=== PATIENT | male | born 1950 | race Caucasian/White ===

== ENCOUNTER 2018-01-23 05:45 | Day surgery (SDC) | payer OTHER ==
[~2018-01-23] VITALS: Ht 175.3 cm; Wt 83.5 kg
--- NOTE | ~2018-01-23 | OR ---
[facility] [address], [place] [address] Draft DATE OF OPERATION: 01/23/2018 SURGEON: Shade Frazier MD PREOPERATIVE DIAGNOSES: 1. Incarcerated epigastric incisional hernia. 2. Incarcerated periumbilical incisional hernia. POSTOPERATIVE DIAGNOSES: 1. Incarcerated epigastric incisional hernias x4. 2. Incarcerated periumbilical hernia x1. PROCEDURES: Epigastric and periumbilical incisional herniorrhaphy with intraabdominal Ventrio mesh (11 x 14 cm). ESTIMATED BLOOD LOSS: None. INDICATIONS: Vaughn is a 67-year-old gentleman, who has been a long-time smoker. He came with an incarcerated symptomatic periumbilical and epigastric incisional hernia. He talked about an open appendectomy many years ago. He said because of scar tissue, he had to have a midline laparotomy with resection of bowel and lysis of adhesions. He said he continues to cut firewood and spit firewood to help heat the house. He said he has been having a lot of pain with his hernias. The epigastric hernia in particular has been bothering him. He ended up at the [facility] Emergency Room. The CT scan showed what appeared to be a 1.3 cm epigastric fascial defect along with a smaller fat containing periumbilical incisional hernia. His primary care provider had asked him to see me as a general surgeon. In the office, I met with Vaughn and his family. I gave them a [employer] brochure on hernias. We looked at that very carefully. He understands the difference between a primary suture repair and a mesh repair. I also explained to build quite common with these hernias to have multiple Bermudian cheese like defects and that we may end up doing more surgery than expected. In general, we like to send the patient home afterwards. Medication we do have to keep them. He understands the expected intraop and postop course. There is risk of surgery including, but not limited to bleeding, infection, scarring, change in contour of the skin, damage to bowel, infection of mesh requiring removal, recurrent hernias, and chronic pain. He expressed understanding and wish to proceed. PATIENT NAME: DESTINY LINDSAY OPERATIVE REPORT DATE OF : 48 REPORT #: [id number] PHYSICIAN: SHADE FRAZIER MD PCP: SHERYL AKINS PA-C REPORT IS CONFIDENTIAL AND NOT TO BE RELEASED WITHOUT AUTHORIZATION [facility] [address], [place] [address] Draft PROCEDURE NOTE: I met with Vaughn and his family in our preop area. We marked the two hernias appropriately. He was then taken into the operating room and placed in the supine position under general LMA anesthesia. He was given preoperative antibiotics along with subcutaneous heparin. SCDs were utilized. He was then prepped and draped in the usual sterile fashion. After this, we utilized his previous midline epigastric incision and we opened that up sharply and carried it down around the four hernias with the help of the cautery. We opened up two of the bridges between two of the hernias because they were quite narrow less than a centimeter. It gave us better access to the abdomen. We were able to take down all the adhesions to the and we took down the falciform ligament to the edge of the liver. He had a piece of small bowel adherent to his midline below the umbilicus and I took that down a little over an inch and so it was down and out of our way. We then divided the umbilical skin from the umbilical fascial defect and that was small maybe a centimeter or less. I then closed that fascial defect with an interrupted [id number] and a simple #1 Prolene suture. After examining the wound, we decided to use our 11 x 14 cm oval shaped Ventrio mesh, which we placed into the abdominal cavity and everything was visualized and found to be quite flat and secure. The midline fascia was brought back together with interrupted [id number] and simple #1 Prolene sutures. Several passes of the suture went through the top layer of the mesh to help hold it in place and keep it centered. After this, the wound was copiously irrigated and suctioned out until clear. Local anesthetic was injected into his abdominal wall as well as the subcutaneous tissues. The dermis was reapproximated with interrupted 3-0 Monocryl sutures. We did use a 2-0 PDS suture to bring the umbilical skin back down to the midline fascia. The skin edges were then reapproximated with weston. Dry gauze and tape were then applied. Vaughn was then awakened from his anesthesia, extubated in the OR, and taken to recovery room in stable condition. Shade Frazier MD ALB/MODL /[id number] cc: MD Elizabet Dawson ARNP PATIENT NAME: DESTINY LINDSAY OPERATIVE REPORT DATE OF : 48 REPORT #: [id number] PHYSICIAN: SHADE FRAZIER MD PCP: SHERYL AKINS PA-C REPORT IS CONFIDENTIAL AND NOT TO BE RELEASED WITHOUT AUTHORIZATION [address] [place], [place] [address] Draft Sheryl Akins PA-C Copies: SHADE FRAZIER MD, KIMBERLY KAROL ARNP NORRIS, CHLOE K PA-C ~ PATIENT NAME: DESTINY LINDSAY OPERATIVE REPORT DATE OF : 48 REPORT #: [id number] PHYSICIAN: SHADE FRAZIER MD PCP: SHERYL AKINS PA-C REPORT IS CONFIDENTIAL AND NOT TO BE RELEASED WITHOUT AUTHORIZATION
[~2018-01-23 05:45] MED LIST: GEMFIBROZIL600 MG PO; OMEGA 3 1,0001 EACH PO; TYLENOL325 MG PO; VITAMIN D1000 UNI1 PO
[2018-01-23] MEDS ORDERED: NORCO 10-325 T1 EACH PO (11:24)
== END 2018-01-23 12:55 | disposition home or self-care (01) ==
LOC: DS 05:45
PROVIDERS: Colon & Rectal Surgery
PROC: 0WUF0JZ Supplement Abdominal Wall with Synthetic Substitute, Open Approach (ICD-10-PCS; principal; 2018-01-23 06:45)
DX: K43.0 Incisional hernia with obstruction, without gangrene (principal); J44.9 Chronic obstructive pulmonary disease, unspecified; K21.9 Gastro-esophageal reflux disease without esophagitis; E78.1 Pure hyperglyceridemia; M19.90 Unspecified osteoarthritis, unspecified site; M48.00 Spinal stenosis, site unspecified; F17.210 Nicotine dependence, cigarettes, uncomplicated; Z90.49 Acquired absence of other specified parts of digestive tract; Z79.899 Other long term (current) drug therapy
CPT/HCPCS: C1781; J0330; J0690; J1100; J1170; J1644; J1885; J2250; J2405; J2704; J3010; J7120

== ENCOUNTER 2022-10-30 20:36 | Emergency (ER) | payer OTHER, MEDICARE ==
[~2022-10-30] VITALS: Ht 175.3 cm; Wt 83.5 kg
[~2022-10-30 20:36] MED LIST changes: +NORCO 10-325 T1 EACH PO
--- OUTSIDE RECORDS SUMMARY | 2022-10-30 20:44 | XMS ---
PreManage Notification: DESTINY LINDSAY Security Site[employer] Developer Events No recent Security Events currently on file CRITERIA MET - [facility] - 2 Visits in 30 Days CARE PROVIDERS There are no care providers on record at this time. Gary has no Care Guidelines for this patient. Aaron VISIT COUNT (12 MO.) [address] TOTAL 3 NOTE: Visits indicate total known visits. ED/C VISIT TRACKING (12 MO.) [facility] COMPLAINT: - COLD SYMPTOMS 10/25/2022 12:51 [facility] TYPE: Emergency DIAGNOSES: - Acute cough - Acute upper respiratory infection, unspecified - COUGH PHLEGM 02/25/2022 13:39 [facility] TYPE: Emergency COMPLAINT: - Shoulder Pain_shoulder pain - PAIN IN LEFT SHOULDER DIAGNOSES: 0. Pain in left shoulder 1. Unspecified sprain of left shoulder joint, initial encounter 3. Overexertion from prolonged static or awkward postures, initial encounter 4. Other nursing home (current) drug therapy 5. care home (current) use of aspirin INPATIENT VISIT TRACKING (12 MO.) No inpatient visits to display in this time frame [id number]
[2022-10-30 21:52] VITALS: BP 138/79
== END 2022-10-30 21:53 | disposition home or self-care (01) ==
LOC: ED 20:36
DX: B34.9 Viral infection, unspecified (principal); F17.200 Nicotine dependence, unspecified, uncomplicated; Z79.899 Other long term (current) drug therapy
CPT/HCPCS: 99283-25

== ENCOUNTER 2022-11-06 21:47 | Emergency (ER) | payer OTHER, MEDICARE ==
[~2022-11-06] VITALS: Ht 175.3 cm; Wt 80.0 kg
--- OUTSIDE RECORDS SUMMARY | 2022-11-06 21:54 | XMS ---
PreManage Notification: DESTINY LINDSAY Security Equipment Service Engineer Events No recent Security Events currently on file CRITERIA MET - [facility] - 2 Visits in 30 Days CARE PROVIDERS There are no care providers on record at this time. Gary has no Care Guidelines for this patient. Aaron VISIT COUNT (12 MO.) [address] TOTAL 4 NOTE: Visits indicate total known visits. ED/C VISIT TRACKING (12 MO.) [facility] COMPLAINT: - COUGH 10/30/2022 20:37 [facility] [place] TYPE: Emergency COMPLAINT: - COLD SYMPTOMS DIAGNOSES: - Cough, unspecified - Nicotine dependence, unspecified, uncomplicated - Other retirement (current) drug therapy - Viral infection, unspecified 10/25/2022 12:51 [facility] [place] TYPE: Emergency DIAGNOSES: - Acute cough - Acute upper respiratory infection, unspecified - COUGH PHLEGM 02[facility]25[facility]2022 13[facility] COMPLAINT: - Shoulder Pain_shoulder pain - PAIN IN LEFT SHOULDER DIAGNOSES: 0. Pain in left shoulder 1. Unspecified sprain of left shoulder joint, initial encounter 3. Overexertion from prolonged static or awkward postures, initial encounter 4. Other terminal carman (current) drug therapy 5. longterm (current) use of aspirin INPATIENT VISIT TRACKING (12 MO.) No inpatient visits to display in this time frame [email or web address]
[2022-11-07 00:11] VITALS: BP 130/75
== END 2022-11-07 00:12 | disposition home or self-care (01) ==
LOC: ED 21:47
DX: J20.9 Acute bronchitis, unspecified (principal); J42 Unspecified chronic bronchitis; I10 Essential (primary) hypertension; F17.210 Nicotine dependence, cigarettes, uncomplicated; Z79.899 Other long term (current) drug therapy; Z20.822 Contact with and (suspected) exposure to COVID-19
CPT/HCPCS: 36415; 71045; 80053; 83880; 85025; 87502; 94640; 94664; 99284-25; U0002